=== PATIENT | female | born 1950 | race Caucasian/White ===

== ENCOUNTER 2024-07-21 10:06 | Emergency (ER) | payer MEDICARE, BC | END 2024-07-21 11:17 | disposition home or self-care (01) | LOC: JP.ED 10:06 | DX: S00.462A Insect bite (nonvenomous) of left ear, initial encounter (principal); W57.XXXA Bitten or stung by nonvenomous insect and other nonvenomous arthropods, initial encounter | CPT/HCPCS: 99282 ==